=== PATIENT | female | born 1990 | race Caucasian/White ===

== ENCOUNTER 2017-01-04 15:10 | Emergency (ER) | payer MEDICAID ==
[~2017-01-04] VITALS: Ht 160 cm; Wt 62.0 kg
[~2017-01-04 15:10] MED LIST: ARIP30TA PO; BENZ2AMP4 PO; TRAZ100T15 PO
[2017-01-04 15:16] VITALS: BP 109/72
== END 2017-01-04 15:36 | disposition home or self-care (01) ==
LOC: ED 15:20
DX: T78.40XA Allergy, unspecified, initial encounter (principal); R21 Rash and other nonspecific skin eruption; G56.00 Carpal tunnel syndrome, unspecified upper limb
CPT/HCPCS: 99283

== ENCOUNTER 2017-05-08 18:29 | Emergency (ER) | payer MEDICAID ==
[~2017-05-08] VITALS: Ht 157.5 cm; Wt 52.3 kg
[~2017-05-08 18:29] MED LIST changes: -ARIP30TA PO; +ARIP30TA4 PO
[2017-05-08 19:26] LABS: HEMATOCRIT 46.1 % (34.6-47.8); HEMOGLOBIN 15.3 g/dL (11.7-16.4); WHITE BLOOD COUNT 7.4 x10^3/uL (3.4-10)
[2017-05-08] MEDS ORDERED: MORPHINE SULFATE 4 MG/ML, 1ML IVPush PRN (19:30)
[2017-05-08] MEDS ORDERED: ONDANSETRON 2MG/ML, 2ML IVPush ONE (19:30)
[2017-05-08] MEDS ORDERED: SODIUM CHLORIDE FLUSH 10ML SYR IVF ONE (19:30)
[2017-05-08 19:34] LABS: ASPARTATE AMINO TRANSFERASE 13 U/L (15-37); BLOOD UREA NITROGEN 12 mg/dL (7-18)
[2017-05-08] MEDS ORDERED: morphine SULFATE 10 MG/ML, 1ML ONE (19:50)
[2017-05-08] MEDS ORDERED: ONDANSETRON 2MG/ML, 2ML ONE (19:51)
[2017-05-08 20:48] VITALS: BP 118/73
== END 2017-05-08 20:51 | disposition home or self-care (01) ==
LOC: ED 20:40
DX: R10.2 Pelvic and perineal pain (principal); N93.8 Other specified abnormal uterine and vaginal bleeding
CPT/HCPCS: 36415; 76830; 80053; 84703; 85025; 96374; 96375; 99285; J2405

== ENCOUNTER 2017-06-07 01:09 | Emergency (ER) | payer MEDICAID ==
[~2017-06-07] VITALS: Ht 157.5 cm; Wt 54.0 kg
[2017-06-07 01:10] VITALS: BP 124/78
[2017-06-07 02:32] LABS: HEMATOCRIT 42.1 % (34.6-47.8); HEMOGLOBIN 13.9 g/dL (11.7-16.4); WHITE BLOOD COUNT 9.1 x10^3/uL (3.4-10)
== END 2017-06-07 03:28 | disposition home or self-care (01) ==
LOC: ED 03:22
DX: N93.9 Abnormal uterine and vaginal bleeding, unspecified (principal)
CPT/HCPCS: 36415; 84703; 85025; 99284

== ENCOUNTER → 2017-07-04 | Outpatient (CLI) | payer MEDICAID ==
[~2017-07-04] MED LIST changes: +ATOM10CA PO; +BUPR300T49 PO; +CARB200T4 PO; +NALT380S INJ; +PRAZ2CAP2 PO
== END ==
LOC: STAR 10:37
PROVIDERS: ATTEND Student in an Organized Health Care Education/Training Program
DX: Z02.9 Encounter for administrative examinations, unspecified (principal)

== ENCOUNTER 2017-07-21 13:40 | Day surgery (SDC) | payer MEDICAID ==
[~2017-07-21] VITALS: Ht 157.5 cm; Wt 52.7 kg
[2017-07-21] MEDS ORDERED: LACTATED RINGERS 1,000 ML IV SCH (13:55)
[2017-07-21] MEDS ORDERED: IBUP-1221 PO (14:16)
[2017-07-21 14:18] VITALS: BP 114/76
[2017-07-21 14:26] LABS: HCG UR SG 1.024 (1.003-1.030)
[2017-07-21] MEDS ORDERED: BUPIVACAINE/PF 0.25% ONE (15:03)
[2017-07-21] MEDS ORDERED: EPINEPHRINE 1 MG/ML, 1ML ONE (15:03)
[2017-07-21] MEDS ORDERED: FENTANYL PF 250 MCG/5ML ONE (15:05)
[2017-07-21] MEDS ORDERED: MIDAZOLAM 1 MG/ML, 2ML ONE (15:05)
[2017-07-21 15:44] LABS: AMPHETAMINE SCREEN, URINE Negative (Negative); BARBITURATE SCREEN, URINE Negative (Negative); BENZODIAZEPINE SCREEN, URINE Negative (Negative); CANNABINOID SCREEN, URINE Negative (Negative); COCAINE SCREEN, URINE Negative (Negative); METHADONE SCREEN, URINE Negative (Negative); OPIATE SCREEN, URINE Negative (Negative)
[2017-07-21] MEDS ORDERED: ONDANSETRON 2MG/ML, 2ML ONE (16:05)
[2017-07-21] MEDS ORDERED: CEFAZOLIN 1,000 MG ONE (16:05)
[2017-07-21] MEDS ORDERED: PROPOFOL 10 MG/ML, 20ML ONE (16:05)
[2017-07-21] MEDS ORDERED: DEXAMETHASONE 4 MG/ML, 1ML ONE (16:05)
[2017-07-21] MEDS ORDERED: ROCURONIUM 10 MG/ML,10ML ONE (16:05)
[2017-07-21] MEDS ORDERED: GLYCOPYRROLATE 0.2MG/1ML, 5ML ONE (16:05)
[2017-07-21] MEDS ORDERED: NEOSTIGMINE 1 MG/ML, 10ML ONE (16:05)
[2017-07-21] MEDS ORDERED: PROMETHAZINE 25 MG/ML, 1ML IV PRN (17:00)
[2017-07-21] MEDS ORDERED: MEPERIDINE/PF 25MG/0.5ML IVPush PRN (17:00)
[2017-07-21] MEDS ORDERED: OXYcodone 5 MG/5 ML ORAL.SOL UDC PO PRN (17:00)
[2017-07-21] MEDS ORDERED: ACETAMINOPHEN 325 MG TABLET PO PRN (17:00)
[2017-07-21] MEDS ORDERED: ALBUTEROL SULFATE 2.5 MG/3 ML NPPB PRN (17:00)
[2017-07-21] MEDS ORDERED: HYDROmorphone 1 MG/ML, 1ML IV PRN (17:00)
[2017-07-21] MEDS ORDERED: LORazepam 2 MG/ML, 1ML IVPush PRN (17:00)
[2017-07-21] MEDS ORDERED: MEPERIDINE/PF 50 MG/ML ONE (17:01)
[2017-07-21] MEDS: FENTANYL PF 100 MCG/2ML IV PRN ×2 (17:12→17:30)
[2017-07-21] MEDS ORDERED: OXYcodone 5 MG/5 ML ORAL.SOL UDC ONE (17:20)
[2017-07-21] MEDS ORDERED: ACETAMINOPHEN 650 MG/20.3 ML UDC ONE (17:20)
[2017-07-21] MEDS ORDERED: FENTANYL PF 100 MCG/2ML ONE (17:29)
== END 2017-07-21 18:35 | disposition home or self-care (01) ==
LOC: OR 13:40
PROVIDERS: ATTEND Student in an Organized Health Care Education/Training Program
DX: N73.6 Female pelvic peritoneal adhesions (postinfective) (principal); N94.10 Unspecified dyspareunia; N94.6 Dysmenorrhea, unspecified; J45.909 Unspecified asthma, uncomplicated; Z91.040 Latex allergy status; Z91.013 Allergy to seafood
CPT/HCPCS: 49320; 80307; 81025; J0171; J0690; J1100; J2175; J2250; J2405; J2704; J2710; J3010; J3490; J7120

== ENCOUNTER 2018-01-19 18:18 | Emergency (ER) | payer MEDICAID ==
[~2018-01-19] VITALS: Ht 157.5 cm; Wt 50.0 kg
[~2018-01-19 18:18] MED LIST changes: +IBUP-1221 PO; +TRAZ-137 PO; -TRAZ100T15 PO
[2018-01-19 19:25] LABS: BASOPHILS # (AUTO) 0.05 x10^3/uL (0-0.1); BASOPHILS % (AUTO) 1 % (0-1); EOSINOPHILS # (AUTO) 0.22 x10^3/uL (0-0.4); EOSINOPHILS % (AUTO) 3 % (1-7); LYMPHOCYTES # (AUTO) 1.64 x10^3/uL (1-3.4); LYMPHOCYTES % (AUTO) 24 % (22-44); MD NO; MEAN CORPUSCULAR HEMOGLOBIN 27.3 pg (27.0-34.8); MEAN CORPUSCULAR HGB CONC 33.4 g/dL (32.4-35.8); MEAN CORPUSCULAR VOLUME 81.7 fL (80-100); MEAN PLATELET VOLUME 8.9 fL (7.4-10.4); MONOCYTES # (AUTO) 0.46 x10^3/uL (0.2-0.8); MONOCYTES % (AUTO) 7 % (2-9); NEUTROPHILS # (AUTO) 4.42 x10^3/uL (1.8-6.8); NEUTROPHILS % (AUTO) 65 % (42-75); PLATELET COUNT 307 x10^3/uL (130-400); RED BLOOD COUNT 4.99 x10^6/uL (3.82-5.3); RED CELL DISTRIBUTION WIDTH 14.7 % (9.6-15.2)
[2018-01-19 19:38] LABS: ALBUMIN 3.7 g/dL (3.4-5.0); ANION GAP 9 mmol/L (5-15); CHLORIDE 107 mmol/L (98-107)
[2018-01-19 19:43] LABS: ALANINE AMINOTRANSFERASE 23 U/L (12-78); ALKALINE PHOSPHATASE 84 U/L (45-117); BILIRUBIN,TOTAL 1.2 mg/dL (0.2-1.0); CREATININE 0.72 mg/dL (0.55-1.02); TOTAL PROTEIN 7.6 g/dL (6.4-8.2)
[2018-01-19] MEDS ORDERED: KETOROLAC 30 MG/1 ML ONE (19:53)
[2018-01-19] MEDS ORDERED: KETOROLAC 30 MG/1 ML IM ONE (20:00)
[2018-01-19 20:23] LABS: MICROSCOPIC AUTO
[2018-01-19 20:24] LABS: CULTURE INDICATED? NO
[2018-01-19 21:17] VITALS: BP 111/59
== END 2018-01-19 21:20 | disposition home or self-care (01) ==
LOC: ED 21:05
DX: N92.1 Excessive and frequent menstruation with irregular cycle (principal); R10.2 Pelvic and perineal pain
CPT/HCPCS: 36415; 76830; 80053; 81001; 84703; 85025; 96372; 99285; J1885

== ENCOUNTER 2018-12-05 09:03 | Emergency (ER) | payer MEDICAID ==
[~2018-12-05] VITALS: Ht 157.5 cm; Wt 56.2 kg
[2018-12-05 09:12] VITALS: BP 112/72
--- NOTE | 2018-12-05 09:55 | NUR ---
pt to CT
[2018-12-05] MEDS ORDERED: KETOROLAC 60 MG/2 ML IM ONE (10:00)
[2018-12-05] MEDS ORDERED: DIPHENHYDRAMINE 25 MG CAPSULE PO ONE (10:00)
[2018-12-05] MEDS ORDERED: METOCLOPRAMIDE 5 MG/ML, 2ML IM ONE (10:00)
[2018-12-05] MEDS ORDERED: KETOROLAC 60 MG/2 ML ONE (10:07)
[2018-12-05] MEDS ORDERED: DIPHENHYDRAMINE 25 MG CAPSULE ONE (10:07)
[2018-12-05] MEDS ORDERED: METOCLOPRAMIDE 10MG TABLET ONE (10:07)
[2018-12-05] MEDS ORDERED: METOCLOPRAMIDE 5 MG/ML, 2ML ONE (10:17)
--- NOTE | 2018-12-05 11:20 | NUR ---
Patient given discharge instructions and Rx, they have confirmed that they understand the instructions. Patient ambulatory with steady gait.
== END 2018-12-05 11:27 | disposition home or self-care (01) ==
LOC: ED 11:06
DX: G44.219 Episodic tension-type headache, not intractable (principal); F31.9 Bipolar disorder, unspecified; Z88.1 Allergy status to other antibiotic agents; Z88.6 Allergy status to analgesic agent
CPT/HCPCS: 70450; 96372; 99284; J1885; J2765; Q0163

== ENCOUNTER 2019-06-24 13:09 | Emergency (ER) | payer MEDICAID ==
[~2019-06-24] VITALS: Ht 157.5 cm; Wt 62.0 kg
[2019-06-24 13:19] VITALS: BP 131/73
== END 2019-06-24 13:51 | disposition home or self-care (01) ==
LOC: ED 13:30
DX: K08.89 Other specified disorders of teeth and supporting structures (principal); Z87.891 Personal history of nicotine dependence; I34.1 Nonrheumatic mitral (valve) prolapse
CPT/HCPCS: 99283